=== PATIENT | female | born 1955 | race Hispanic/Latino ===

== ENCOUNTER 2018-05-17 11:01 | Emergency (ER) | payer MEDICARE, BC ==
[2018-05-17 11:44] VITALS: RESP 18; BMI 33.4
--- NOTE | 2018-05-17 12:00 | ED PDOC ---
Arrival/HPI - General Time Seen by Provider: 05/17/18 11:49 Historian: Patient - History of Present Illness Narrative History of Present Illness (Text): 05/17/18 11:51 62 year old female, with past medical history of hypothyroidism, diabetes, back surgery and arthritis, presents to the Emergency department complaining of absence of blood pressure since prior to arrival. Patient states she was in physical therapy this morning, when she did not have a blood pressure prompting her to present to the Emergency department for evaluation. Patient additionally informs associated dizziness, shortness of breath and non productive cough. Patient denies any fever, chills, nausea, vomiting, diarrhea, abdominal pain, chest pain, or any other complaints. PMD: Dr. Nials Time/Duration: Prior to Arrival Symptom Onset: Gradual Symptom Course: Unchanged Activities at Onset: Light Context: Other (Physical therapy) Past Medical History - Provider Review Nursing Documentation Reviewed: Yes - Past History Past History: Non-Contributing - Infectious Disease Hx of Infectious Diseases: None - Cardiac Hx Cardiac Disorders: Yes Hx Mitral Valve Prolapse: Yes - Pulmonary Hx Respiratory Disorders: No - Neurological Hx Neurological Disorder: No - HEENT Hx HEENT Disorder: No - Renal Hx Renal Disorder: No - Endocrine/Metabolic Hx Endocrine Disorders: No - Hematological/Oncological Hx Blood Disorders: No - Integumentary Hx Dermatological Disorder: No - Musculoskeletal/Rheumatological Hx Falls: No - Gastrointestinal Hx Gastrointestinal Disorders: Yes - Genitourinary/Gynecological Hx Genitourinary Disorders: No - Psychiatric Hx Substance Use: No - Surgical History Hx Appendectomy: Yes Other/Comment: back fusion surgery 2013, spinal cord stimulator - Anesthesia Hx Anesthesia: Yes Hx Anesthesia Reactions: No Hx Malignant Hyperthermia: No - Suicidal Assessment Feels Threatened In Home Enviroment: No Family/Social History - Physician Review Nursing Documentation Reviewed: Yes Family/Social History: No Known Family HX Smoking Status: Light Smoker < 10 Cigarettes Daily Hx Alcohol Use: No Hx Substance Use: No Hx Substance Use Treatment: No Allergies/Home Meds Allergies/Adverse Reactions: Allergies pineapple Allergy (Verified 05/17/18 11:58) RASH Home Medications: Home Meds Medication Instructions Recorded Confirmed Ondansetron ODT [Zofran ODT] 4 mg PO PRN 11/01/15 11/14/15 Oxycodone HCl [Oxycontin] 80 mg PO TID 11/01/15 11/14/15 Oxycodone Hydrochloride [Oxycodone] 30 mg PO PRN PRN 11/01/15 11/14/15 Methylnaltrexone [place] [Relistor] 8 mg SC PRN PRN 11/14/15 11/14/15 Review of Systems - Physician Review All systems were reviewed & negative as marked: Yes - Review of Systems Constitutional: Normal. absent: Fevers Eyes: Normal ENT: Normal Respiratory: SOB, Cough Cardiovascular: Normal. absent: Chest Pain Gastrointestinal: Normal. absent: Abdominal Pain, Diarrhea, Nausea, Vomiting Genitourinary Female: Normal Musculoskeletal: Normal Skin: Normal Neurological: Dizziness Endocrine: Normal Hemo/Lymphatic: Normal Psychiatric: Normal Physical Exam Vital Signs Reviewed: Yes Vital Signs Temp Pulse Resp BP Pulse Ox 05/17/18 16:45 88 18 99 05/17/18 15:59 97.7 F 89 18 126/72 95 05/17/18 13:33 95 H 18 115/66 96 05/17/18 11:44 98.7 F 96 H 18 132/80 95 Temperature: Afebrile Blood Pressure: Normal Pulse: Tachycardic Respiratory Rate: Normal Appearance: Positive for: Well-Appearing, Non-Toxic, Comfortable Pain Distress: None Mental Status: Positive for: Alert and Oriented X 3 - Systems Exam Head: Present: Atraumatic, Normocephalic Pupils: Present: PERRL Extroacular Muscles: Present: EOMI Conjunctiva: Present: Normal Mouth: Present: Moist Mucous Membranes Neck: Present: Normal Range of Motion Respiratory/Chest: Present: Clear to Auscultation, Good Air Exchange. No: Respiratory Distress, Accessory Muscle Use Cardiovascular: Present: Regular Rate and Rhythm, Normal S1, S2. No: Murmurs Abdomen: No: Tenderness, Distention, Peritoneal Signs Back: Present: Normal Inspection Upper Extremity: Present: Normal Inspection, Neurovascularly Intact. No: Cyanosis, Edema Lower Extremity: Present: Normal Inspection, Normal ROM, Neurovascularly Intact , Other (No pitting edema). No: Edema Neurological: Present: GCS=15, CN II-XII Intact, Speech Normal Skin: Present: Warm, Dry, Normal Color. No: Rashes Psychiatric: Present: Alert, Oriented x 3, Normal Insight, Normal Concentration Medical Decision Making ED Course and Treatment: 05/17/18 12:01 Impression: 62 year old female presents to the Emergency department for absent blood pressure, dizziness, shortness of breath and nonproductive cough. Differential Diagnosis included but are not limited to: pneumonia vs. CHF Plan: -- Labs -- Chest X-ray -- Urinalysis -- Reassess and disposition Prior Visits: Notes and results from previous visits were reviewed. Progress Notes: 05/17/18 12:01 EKG: Ordered, reviewed, and independently interpreted the EKG. Rate : 93 BPM Rhythm : NSR Interpretation : Normal axis. No ST-segment elevations or depressions, no T- wave inversions, normal intervals. 05/17/18 14:25 Lab results were reviewed, shows potassium level of 2.5, for which will administer potassium chloride. Patient is also positve for UTI as per Urinalysis , will administer Recephin. Dr. Horner will be contacted for possible admission. 05/17/18 14:[address] Horner, who is aware and agrees with Emergency department management plan, requests patient to be discharged with antibiotics. 05/17/18 15:15 Chest X-ray reviewed by radiologist, shows: Poor inspiration with low lung volumes, crowded bronchovascular markings and mild bibasilar atelectasis. 05/17/18 15:34 Upon reassessment, patient informs improved symptoms with no new complaints. Patient will be discharged home with antibiotics. - Lab Interpretations Lab Results: 05/17/18 12:20 05/17/18 12:20 Lab Results 05/17/18 13:00: Urine Color Yellow, Urine Appearance Clear, Urine pH 6.0, Ur Specific [place] 1.020, Urine Protein Negative, Urine Glucose (UA) Negative, Urine Ketones Negative, Urine Blood Negative, Urine Nitrate Negative, Urine Bilirubin Negative, Urine Urobilinogen 0.2, Ur Leukocyte Esterase Moderate H, Urine RBC 0 - 2, Urine WBC 15 - 20, Ur Epithelial Cells 6 - 8, Urine Bacteria Mod 05/17/18 12:20: Sodium 142, Potassium 3.5 L, Chloride 107, Carbon Dioxide 22, Anion Gap 17, BUN 15, Creatinine 0.9, Est GFR ( Amer) > 60, Est GFR (Non- Af Amer) > 60, Random Glucose 136 H, Calcium 9.8, Magnesium 2.1, Total Bilirubin 0.4, AST 24, ALT 26, Alkaline Phosphatase 86, Lactate Dehydrogenase 431, Total Creatine Kinase 54, Troponin I < 0.01, NT-Pro-B Natriuret Pep 32.5, Total Protein 7.4, Albumin 4.4, Globulin 3.0, Albumin/Globulin Ratio 1.5 05/17/18 12:20: WBC 6.2 D, RBC 4.71, Hgb 13.9, Hct 40.7, MCV 86.4, MCH 29.5, MCHC 34.2, RDW 13.2, Plt Count 152, MPV 10.1, Gran % 57.4, Lymph % (Auto) 34.1, [place] % (Auto) 6.4 H, Eos % (Auto) 1.8, Baso % (Auto) 0.3, Gran # 3.58, Lymph # ( Auto) 2.1, [place] # (Auto) 0.4, Eos # (Auto) 0.1, Baso # (Auto) 0.02 - RAD Interpretation Radiology Orders: 05/17/18 12:00 CHEST PORTABLE [RAD] Stat Security Sme: Radiologist - EKG Interpretation Interpreted by ED Physician: Yes Type: 12 lead EKG - Medication Orders Current Medication Orders: Discontinued Medications Sodium Chloride (Sodium Chloride 0.9%) 500 mls @ 500 mls/hr IV .Q1H JENNI Last Admin: 05/17/18 13:40 Dose: 500 mls/hr eMAR Start Stop Document 05/17/18 13:40 NANCY (Rec: 05/17/18 14:19 NANCY [id number]) Intravenous Solution Start Date 05/17/18 Start Time 13:40 End Date 05/17/18 End time 14:20 Total Infusion Time 40 Ceftriaxone Sodium (Rocephin 1 Gram Ivpb) 1 gm in 100 mls @ 200 mls/hr IVPB STAT STA PRN Reason: Protocol Stop: 05/17/18 16:23 Last Admin: 05/17/18 16:01 Dose: 200 mls/hr eMAR Start Stop Document 05/17/18 16:01 NANCY (Rec: 05/17/18 16:02 NANCY [id number]) Intravenous Solution Start Date 05/17/18 Start Time 16:01 End Date 05/17/18 End time 16:30 Total Infusion Time 29 Potassium Chloride (K-Dur 20 Meq Er Tab) 40 meq PO STAT STA Stop: 05/17/18 14:22 Last Admin: 05/17/18 15:20 Dose: 40 meq Tramadol HCl (Ultram) 50 mg PO STAT STA Stop: 05/17/18 14:36 Last Admin: 05/17/18 15:20 Dose: 50 mg MAR Pain Assessment Document 05/17/18 15:20 NANCY (Rec: 05/17/18 15:57 NANCY [id number]) Pain Reassessment Is this a pain reassessment? No Sleep Is patient sleeping during reassessment? No Presence of Pain Presence of Pain Yes Description Description Intermittent Intensity of Pain at present 3 - Scribe Statement The provider has reviewed the documentation as recorded by the Scribe Joan Melissa. All medical record entries made by the Scribe were at my direction and personally dictated by me. I have reviewed the chart and agree that the record accurately reflects my personal performance of the history, physical exam, medical decision making, and the department course for this patient. I have also personally directed, reviewed, and agree with the discharge instructions and disposition. Disposition/Present on Arrival - Present on Arrival Any Indicators Present on Arrival: No History of DVT/PE: No History of Uncontrolled Diabetes: No Urinary Catheter: No History Surgical Site Infection Following: None - Disposition Have Diagnosis and Disposition been Completed?: Yes Diagnosis: Urinary tract infection Disposition: HOME/ ROUTINE Disposition Time: 16:45 Condition: GOOD Discharge Instructions (ExitCare): Urinary Tract Infections in Adults Prescriptions: Cefuroxime Axetil [Cefuroxime] 500 mg PO BID #14 tablet Referrals: Bandar Nails MD [Primary Care Provider] - Follow up with primary Forms: Caregivers (Stateless)
[2018-05-17 12:34] LABS: BASO # 0.02 K/mm3 (0.0-2.0); BASO % 0.3 % (0.0-3.0); EOS # 0.1 (0.0-0.7); EOS % 1.8 % (1.5-5.0); GRAN # 3.58 (1.4-6.5); GRAN % 57.4 % (50.0-68.0); HEMOGLOBIN 13.9 g/dL (12.0-16.0); LYMPH # 2.1 (1.2-3.4); LYMPH % 34.1 % (22.0-35.0); MEAN CELL VOLUME 86.4 fl (80.0-105.0); MEAN CORPUSCULAR HEMOGLOBIN 29.5 pg (25.0-35.0); MEAN CORPUSCULAR HGB CONC 34.2 g/dl (31.0-37.0); MEAN PLATELET VOLUME 10.1 fl (7.0-11.0); MONO # 0.4 (0.1-0.6); MONO % 6.4 % (1.0-6.0); RBC 4.71 10^6/uL (3.5-6.1); RED CELL DISTRIBUTION WIDTH 13.2 % (11.5-14.5); WHITE BLOOD COUNT 6.2 10^3/ul (4.5-11.0)
[2018-05-17 12:42] LABS: ALB/GLOB RATIO 1.5 (1.1-1.8); ALBUMIN 4.4 g/dL (3.0-4.8); ALT/SGPT 26 U/L (7-56); AST/SGOT 24 U/L (14-36); BLOOD UREA NITROGEN 15 mg/dL (7-21); CALCIUM 9.8 mg/dL (8.4-10.5); GFR AFRICAN-AMERICAN > 60; GFR NON-AFRICAN AMERICAN > 60
[2018-05-17 12:54] LABS: B-TYPE NATRIURETIC PEPTIDE 32.5 pg/mL (0-450); TROPONIN I < 0.01 ng/mL
[2018-05-17 13:08] LABS: URINE APPEARANCE CLEAR (CLEAR); URINE BILIRUBIN NEGATIVE (NEGATIVE); URINE BLOOD NEGATIVE (NEGATIVE); URINE COLOR YELLOW (YELLOW); URINE GLUCOSE (UA) NEGATIVE (NEGATIVE); URINE LEUKOCYTE ESTERASE MODERATE Leu/uL (NEGATIVE); URINE PROTEIN NEGATIVE mg/dL (<30 mg/dL); URINE UROBILINOGEN 0.2 E.U./dL (<1 E.U./dL)
[2018-05-17 13:22] LABS: URINE RBC 0 - 2 /hpf (0-2); URINE WBC 15 - 20 /hpf (0-6)
[2018-05-17 13:23] LABS: URINE BACTERIA MOD (NEG)
[2018-05-17] MEDS ORDERED: Sodium Chloride 0.9% 500 ML IV SCH (13:30)
--- NOTE | 2018-05-17 13:43 | RAD ---
HISTORY: shortness of breath COMPARISON: No prior. FINDINGS: LUNGS: Poor inspiration with low lung volumes, crowded bronchovascular markings and mild bibasilar atelectasis. PLEURA: No significant pleural effusion identified, no pneumothorax apparent. CARDIOVASCULAR: Normal. OSSEOUS STRUCTURES: No significant abnormalities. VISUALIZED UPPER ABDOMEN: Normal. OTHER FINDINGS: None. IMPRESSION: Poor inspiration with low lung volumes, crowded bronchovascular markings and mild bibasilar atelectasis.
[2018-05-17] MEDS ORDERED: Potassium Chloride 20 mEq ER Tab PO STA (14:21)
--- NOTE | 2018-05-17 14:53 | CARD ---
APPROVED REPORT EKG Measurement Heart [id number] <Conclusion> Sinus rhythm with APCs NSSTW changes Prolonged QTc
[2018-05-17] MEDS ORDERED: cefTRIAXone 1 gm 1 GM/100 ML BAG IVPB STA (15:54)
[2018-05-17 16:01] VITALS: BP 126/72; TEMP 97.7
[2018-05-17 17:09] VITALS: PULSE 88; O2SAT 99
[2018-05-18] MEDS ORDERED: cefTRIAXone 1 gm 1 GM/100 ML BAG IVPB SCH (10:00)
== END 2018-05-17 16:45 | disposition home or self-care (01) ==
LOC: ED 11:01
DX: N39.0 Urinary tract infection, site not specified (principal); E11.9 Type 2 diabetes mellitus without complications; I34.1 Nonrheumatic mitral (valve) prolapse
CPT/HCPCS: 71045; 80053; 81001; 82550; 83615; 83735; 83880; 84484; 85025; 87086; 93005; 96361; 96365; 99285; J0696; J7040